=== PATIENT | female | born 1970 | race Caucasian/White ===

== ENCOUNTER 2025-02-05 08:27 | Emergency (ER) | payer SELFPAY ==
[2025-02-05] VITALS (19 sets, daily range): BP systolic 119–189; BP diastolic 67–112; PULSE 66–106; RESP 9–26; TEMP 36.8–36.9; O2SAT 94–100
--- NOTE | ~2025-02-05 | CT_ITS ---
EXAMINATION: CTA chest PE protocol DATE: 02/05/2025 10:27 INDICATION: Chest pain TECHNIQUE: Computed tomography (CT) pulmonary angiogram of the chest was performed with 100 mL Omnipa que-350 intravenous contrast. Additional 3D reconstructions utilizing coronal maximum intensity proje ction (MIP) were performed. Automated exposure control and iterative reconstruction technique were em ployed. The dose-length product was 398.25 mGy-cm. COMPARISON: None FINDINGS: No pulmonary embolism. Multiple small calcified pleural, subpleural and intrafissural nodules in the posterior lateral left upper lobe along the major fissure consistent with sequela of old granulomatou s disease. Mild dependent atelectasis in bilateral lower lobes small lucent regions of air trapping c onsistent with small airway disease. No pneumonia, pulmonary edema or pleural effusion. Heart size is normal. Thoracic aorta is normal in caliber with no dissection. No pathologically enlarged thoracic lymphadenopathy. Small sliding-type hiatal hernia. Couple splenic calcification consistent with old g ranulomatous disease. Moderate lower cervical and mild upper thoracic spondylosis. IMPRESSION: 1. No pulmonary embolism or other acute cardiopulmonary disease. 2. Small sliding-type hiatal hernia. Reviewed, dictated and finalized at location A.
--- NOTE | ~2025-02-05 | XR_ITS ---
EXAMINATION: XR chest 2V DATE: 02/05/2025 09:16 INDICATION: Chest pain and shortness of breath TECHNIQUE: PA and lateral views of the chest were obtained. COMPARISON: None FINDINGS: Calcified nodule lateral left midlung zone along with calcified left hilar lymph nodes consistent wit h old granulomatous disease. No other airspace opacities, pulmonary edema, pleural effusion or pneumo thorax. Heart size is normal. Small hiatal hernia. Minimal anterior wedging of a midthoracic vertebra l body, likely T8. IMPRESSION: 1. No acute cardiopulmonary disease. 2. Small hiatal hernia. Reviewed, dictated and finalized at location A.
--- NOTE | 2025-02-05 08:29 | ECG_ITS ---
Test Date: 2025-02-05 08:35:47 Measurements Intervals [place] Rate: 84 P: 26 CA: 149 QRS: -14 QRSD: 88 T: -2 QT: 361 QTc: 429 Interpretive Statements SINUS RHYTHM POSSIBLE LEFT ATRIAL ENLARGEMENT POSSIBLE RIGHT VENTRICULAR CONDUCTION DELAY BORDERLINE ST-T WAVE ABNORMALITY- INFERIOR LEADS BASELINE WANDER- I, II, III, AVL, V5 BORDERLINE ECG No previous ECG available for comparison Electronically Signed On 02-05-2025 12:40:32 CDT by Sumanth Inman D.O.
--- OUTSIDE RECORDS SUMMARY | 2025-02-05 08:29 | XMS_ITS | Continuity of Care Document ---
Author Organization [facility] Address [address] [place] [address] Care Team Providers Care Assembly Operator Name Role Phone Matt Azul MD Unavailable Unavailabl e Procedures Procedure Date Cv Stress; Interpt & Reprt Onl 20 Cv Stress; Phys Supervs Only Echo W/rest & Stress-interp & 0 Cv Stress; Interpt & Reprt Onl 20 Cv Stress; Phys Supervs Only Advance Directives Directive Yes / No Effective Date File Name No Information Encounters Encounter Description Practice Location Reason(s) For Visit Diagnoses Date Provider Providers Copied on Encounter [facility], [address] [place] [address], [facility], [facility] No Information 0 Jorge Alberto Gutierrez . [address], [facility], . tel:[phone] Referring Provider: Matt Robles, [address] [facility] [address] [place] [address], [address]. tel:[phone] [facility], [address] [place] [address], [facility], [facility] No Information Feb-0 0 Althea Robles. [address] [facility], [address] [place] [address], [address], [place]. tel:[phone] Referring Provider: Travis Robles, [address] [facility] [address] [place] [address], [facility]. tel:[phone] Family History Family Member Type Diagnosis Age At Onset No Information Payers Payer name Insurance type Covered libertarian ID Authortriciaa tiiván(s) [facility] POS CI [id number] Social History Type Description Quantity Date Captured Comments Sex Female Smoking Status No Information Chief Complaint And Reason For Visit No Information Reason For Referral Reason For Referral No Information History Of Present Illness Encounter Date Complaint History Of Prese nt Illness No Information Functional Status Date Functional Assessmen t No Information Instructions Date Instruction Additional Infor mation No Information Assessments Type Assessment Date No Information Patient Care Teams Name Effective Dates (start - stop) Status Members No Information
--- OUTSIDE RECORDS SUMMARY | 2025-02-05 08:29 | XMS_ITS | Clinical Summary ---
Author Organization [facility] [address] [place] Address [address] [place] [address] Care Team Providers Care Nipple Maker Name Role Phone Liliana Larios NP Primary Care Provider [phone] Allergies No known active allergies Medications multivitamin with minerals tablet Take 1 tablet by mouth daily Active Lactobacillus acidophilus (PROBIOTIC ORAL) Take by mouth Active escitalopram (LEXAPRO) 10 mg tablet Take 0.5 tablets (5 mg total) by mouth daily for 7 days, THEN 1 tablet (10 mg total) daily. 34 tablet 1 04/26/20 24 Active temazepam (RESTORIL) 15 mg capsule TAKE 1 CAPSULE BY MOUTH NIGHTLY NEEDED FOR SLEEP. 90 capsule 1 01/10/20 25 Active amLODIPine (NORVASC) 5 mg tabletIndicatio ns:Hypertension , essential Take 1 tablet (5 mg total) by mouth daily 90 tablet 1 01/10/20 25 026 Active HYDROcodone-shawna taminophen ([place]) 5-325 mg per tablet Take 5-325 mg by mouth every 8 (eight) hours 025 Discontinued( erapy completed) temazepam (RESTORIL) 15 mg capsule TAKE 1 CAPSULE BY MOUTH NIGHTLY NEEDED FOR SLEEP. 30 capsule 1 11/11/19 25 025 Discontinued amLODIPine (NORVASC) 5 mg tabletIndicatio ns:Hypertension , essential TAKE 1 TABLET (5 MG TOTAL) BY MOUTH DAILY. 90 tablet 01/06/20 025 Discontinued(Re order) Active Problems Problem Noted Date Diagnosed Date Hypertension, essential 04/26/2024 Assessment & Plan (04/26/2024 1:34 PM CDT): Stable/ Improved. Blood pressure is adequately controlled on amlodipine . We will not make any medication changes today. Will have her follow-up in 6 months for continued monitoring and management Keloid of skin 04/26/2024 Assessment & Plan (04/26/2024 1:34 PM CDT): Referral to plastic surgery for evaluation. Insomnia due to other mental disorder 04/26/2024 Assessment & Plan (04/26/2024 1:44 PM CDT): Secondary to anxiety. Also in menopause which can contribute. Will start restoril 7.5mg at bedtime. Discussed dosage and may call if dosage is too high to too high, but we'll f/u in 4-6 weeks for recheck Generalized anxiety disorder 09/30/2016 Assessment & Plan (04/26/2024 1:35 PM CDT): Discussed starting a medication and pt is agreeable. Will start escitalopram . Discussed starting dose and titration to full dose, possible SE and time frame for expected results. Call if any suicidal thoughts or questions concerning SE. Do not abruptly stop medication without calling office. Follow up in 3-4 weeks for recheck and continuation of medications. Crohn's colitis 01/21/2016 Assessment & Plan (04/26/2024 1:34 PM CDT): History of. No current problems. I told her I want her to have a GI established in case she would have an exacerbation. Will place referral. GERD (gastroesophageal reflux disease) 6 IBS (irritable bowel syndrome) 01/21/2016 Encounters Date Type Department Care Team Description 01/19/2025 8:45 AM CDT Ancillary Procedure [facility] Imaging at [address] [address] Acute right ankle pain 01/19/2025 8:45 AM CDT Office Visit [facility]ient Care at [address] [address] Blossom Bhandari NP Acute right ankle pain (Primary Dx); Right ankle swelling 01/19/2025 Results Follow-Up [facility] Care at [address] [address] Tiny Lamb PA XR Ankle Right 3+ Vw from Last 3 Months Surgical History Surgery Date Site/Laterality Comments HYSTERECTOMY 06/29/2016 - 06/28/2017 Medical History Medical History Date Comments Hypertension Crohn disease (HCC) Family History Medical History Relation Name Comments Dementia Father Relation Name Status Comments Father Mother Alive Social History Tobacco Use Types Packs/Day Years Used Date Smoking Tobacco: Never Passive Smoke Exposure: Never Smokeless Tobacco: Never AUDIT-C Answer Date Recorded Q1: How often do you have a drink containing alcohol? Never 01/20/2023 Q2: How many drinks containi ng alcohol do you have on a typical day when you are drinking? Patient does not drink Q3: How often do you have si x or more drinks on one occasion? Never 01/20/2023 PHQ-2 Answer Date Recorded PHQ-2 Total Score (If total score is 3 or more points, staff should administer the PHQ-9) 0 04/26/2024 Personal Safety Answer Date Recorded Have you ever been in or are you currently in a harmful physical or emotional relationship or is someone making you feel afraid or unsafe? Denies 01/12/2023 Comments No Sex and Gender Information Value Date Recorded Sex Assigned at Not on file Legal Sex Female 7:30 AM X RAY PHYSICIAN Gender Identity Not on file Sexual Orientation Not on file Obstetrics History Last Filed Vital Signs Vital Sign Reading Time Taken Comments Blood Pressure 131/88 01/19/2025 8:31 AM CDT Pulse 80 01/19/2025 8:31 AM CDT Temperature 37 C (98.6 F) 01/19/2025 8:31 AM CDT Respiratory Rate 20 01/19/2025 8:31 AM CDT Oxygen Saturation 99% 01/19/2025 8:31 AM CDT Inhaled Oxygen Concentration - - Weight 85.2 kg (187 lb 12.8 oz) 01/19/2025 8:31 AM CDT Height 172.7 cm (5' 8) 01/19/2025 8:31 AM CDT Body Mass Index 28.55 01/19/2025 8:31 AM CDT Plan of Treatment Health Maintenance Due Date Last Done Comments Breast Cancer Screening-Mammogram 1971 Colon Cancer Screening-Colonoscopy 1971 Hepatitis C Screening 1971 DTaP/Tdap/Td Vaccine (1 - Tdap) 1982 Hepatitis B Screening 1989 Regular Well Visit/Exam 18-64 1989 Zoster Vaccine (1 of 2) 2021 Covid-19 Vaccine (3 - 2023-2 5 season) 2024 10/13/2020, 09/15/2020 Influenza Vaccine (#1) 2025 Depression Screening 04/26/2025 04/26/2024 Pneumococcal vaccine <65 Aged Out No longer eligible based on patient's age to complete this topic Procedures Procedure Name Priority Date/Time Associated Diagnosis Comments XR ANKLE RIGHT 3 OR MORE VIEWS Schedule DEON, Read DEON (Appt Today, Awaiting Results) 01/19/2025 8:57 AM CDT Acute right ankle pain from Last 3 Months Results * XR Ankle Right 3+ Vw (01/19/2025 8:57 AM CDT) Anatomical Region Laterality Modality Lower Extremities, Ankle Right Digital Radiography 01/19/2025 11:4 4 AM CDT Narrative 01/19/2025 11:46 AM CDT EXAM DESCRIPTION: XR ANKLE RIGHT 3 OR MORE VIEWS REASON FOR STUDY: pain Pt complains of lateral ankle pain after falling this morning. Swelling noted. No prior fx or surgery TECHNIQUE: There are 3 radiographic view(s) of the right ankle . COMPARISON: Older exam 12/09/2008. FINDINGS: Normal mineralization. No acute fracture or dislocation. Talar dome is smooth. Ankle mortise is intact. Moderate plantar calcaneal spur. Heterotopic ossification distal Achilles. There is soft tissue swelling about the lateral malleolus. IMPRESSION: Soft tissue swelling about the lateral malleolus with no underlying fracture. THIS IS AN ELECTRONICALLY VERIFIED FINAL REPORT 01/19/2025 11:46 AM - Electronically signed by Manohar SALINAS T: Report ID: [id number] Reading Location: [id number] Procedure Note Manohar Car MD - 01/19/2025 EXAM DESCRIPTION: XR ANKLE RIGHT 3 OR MORE VIEWS REASON FOR STUDY: pain Pt complains of lateral ankle pain after falling this morning. Swellingnoted. No prior fx or surgery TECHNIQUE: There are 3 radiographic view(s) of the right ankle . COMPARISON: Older exam 12/09/2008. FINDINGS: Normal mineralization. No acute fracture or dislocation. Talar dome is smooth. Ankle mortise is intact. Moderate plantar calcanealspur. Heterotopic ossification distal Achilles. There is soft tissue swellingabout the lateral malleolus. IMPRESSION: Soft tissue swelling about the lateral malleolus with no underlying fracture. THIS IS AN ELECTRONICALLY VERIFIED FINAL REPORT 01/19/2025 11:46 AM - Electronically signed by Manohar SALINAS T: Report ID: [id number] Reading Location: [id number] Blossom Bhandari NP IMG XR PROCEDURES Final Result from Last 3 Months Insurance ON LICENSE OF [facility] Care Teams Nipple Maker Relationship Specialty Start Date End Date Liliana Larios NP [address] [facility] [address] [place] [address] PCP - General Family Medicine 04/26/24
--- OUTSIDE RECORDS SUMMARY | 2025-02-05 08:29 | XMS_ITS | Encounter Summary ---
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
--- OUTSIDE RECORDS SUMMARY | 2025-02-05 08:29 | XMS_ITS | Clinical Summary ---
Author Organization [facility] Address [facility] [place] [address] Care Team Providers Care Electronic Technician Name Role Phone None, Provider MD Primary Care Provider Unavaila ble Allergies No known active allergies Medications ondansetron 4 MG disintegrating tablet Take 1 tablet (4 mg total) by mouth every 8 (eight) hours as needed for Nausea. 20 tablet 8 Active Family History Medical History Relation Comments Hypertension Father Cancer Maternal Grandmother Relation Status Comments Father Maternal Grandmother Social History Tobacco Use Types Packs/Day Years Used Date Smoking Tobacco: Some Days Smokeless Tobacco: Never Alcohol Use Standard Drinks/Week Comments Yes 4 (1 standard drink = 0.6 oz pur e alcohol) Comments No Sex and Gender Information Value Date Recorded Sex Assigned at Not on file Legal Sex Female 6:34 PM CDT Gender Identity Not on file Sexual Orientation Not on file Last Filed Vital Signs Vital Sign Reading Time Taken Comments Blood Pressure 135/87 04/30/2021 12:00 AM CDT Pulse 71 04/30/2021 12:00 AM CDT Temperature 36.3 C (97.4 F) 04/29/2021 8:22 PM CDT Respiratory Rate 16 04/30/2021 12:00 AM CDT Oxygen Saturation 97% 04/30/2021 12:00 AM CDT Inhaled Oxygen Concentration - - Weight 68 kg (150 lb) 04/29/2021 8:22 PM CDT Height 172.7 cm (5' 8) 04/29/2021 8:22 PM CDT Body Mass Index 22.81 04/29/2021 8:22 PM CDT Plan of Treatment Health Maintenance Due Date Last Done Comments Colorectal Cancer Screening Colonoscopy (10 Years) 1971 Annual Physical 1974 Hepatitis C 1989 DTaP, Tdap and Td Vaccines ( 1 - Tdap) 1990 Hepatitis B Vaccines (1 of 3 - 19+ 3-dose series) 1990 Pneumococcal Vaccine: 50+ Ye ars (1 of 2 - PCV) 1990 Mammogram Screening 2011 Zoster Vaccines (1 of 2) 2021 COVID-19 Vaccine (1 - 2023-2 5 season) 2024 Meningococcal B Vaccine Aged Out No l onger eligible based on patient's age to complete this topic Meningococcal Vaccine Aged Out No rupa gricelda eligible based on patient's age to complete this topic RSV Immunizations Under 20 Months Aged Out No longer eligible based on patient's age to complete this topic Insurance MEDICAID MEDICAID Care Teams Electronic Technician Relationship Specialty Start Date End Date None, Provider, PCP - General 04/29/21
[2025-02-05 08:44] LABS: Hematocrit 41.8 % (37.0-47.0); Hemoglobin 14.3 g/dL (12.0-15.0); Immature Granulocyte Percent A 0.4 % (0-0.5); Lymphocytes Absolute Auto 2.43 K/mm3 (0.9-3.2); Mean Corpuscular HGB Conc 34.2 g/dl (32-36); Mean Corpuscular Hemoglobin 29.0 pg (26-34); Mean Corpuscular Volume 84.8 fl (80-100); Nucleated Red Blood Cells Absolute Auto 0.000 K/mm3 (0.0-0.012); Nucleated Red Blood Cells Perc 0.0 % (0.0-0.2); Platelet Count Result 415 k/mm3 (150-375); Red Blood Count 4.93 M/mm3 (4.2-5.4); White Blood Count 8.4 K/mm3 (4.5-10.0)
[2025-02-05] MEDS: ASPIRIN 81 MG CHEWABLE TABLET 324 MG PO (08:46)
[2025-02-05 08:55] LABS: Alanine Aminotransferase 27 U/L (6-35); Albumin Level 4.6 g/dL (3.5-5.1); Alkaline Phosphatase 103 U/L (38-126); Anion Gap 10 mmol/L (4-12); Aspartate Amino Transferase 33 U/L (14-36); Bilirubin,Total 0.5 mg/dL (0.2-1.3); Blood Urea Nitrogen 12 mg/dL (7-17); Calcium 9.8 mg/dL (8.4-10.2); Carbon Dioxide 25 mmol/L (22-30); Chloride 104 mmol/L (98-107); Estimated CRCL calculation 92 ml/min; Estimated Glomerular Filt Rate > 60; Glucose 103 mg/dL (65-110); Lipase 47 U/L (23-300); Potassium 4.2 mmol/L (3.4-5.0); Sodium 139 mmol/L (137-145); Total Protein 8.0 g/dL (6.3-8.2)
[2025-02-05] MEDS: KETOROLAC 30 MG/ML VIAL (*BKC) IV PUSH (08:59)
[2025-02-05 09:04] LABS: INR 1.0; Prothrombin Time 13.1 Seconds (11.1-14.7)
--- NOTE | 2025-02-05 09:04 | PC.NURSE ---
Dr. Courtney clarified okay to give Toradol with prior Aspirin administration. Pt resting in bed at this time. Lights turned down for comfort.
[2025-02-05 09:05] LABS: Partial Thromboplastin Time 34.3 Seconds (22.3-36.8)
[2025-02-05 09:07] LABS: Troponin I < 0.012 ng/mL (0.000-0.034)
--- NOTE | 2025-02-05 09:14 | ED_ITS ---
HPI - General Adult General Chief complaint: Chest Pain Stated complaint: CP Time Seen by Provider: 02/05/25 08:34 History of Present Illness HPI narrative: Patient is a 54-year-old female who presents ER with chest pain. Right-sided. Woke this morning was having discomfort there. Took Tylenol and ibuprofen without improvement. Pain is worse with deep breath and also lifting her arm above her shoulder. It is also very tender to direct palpation. Denies any trauma. No fevers or chills or sweats. No productive cough. No leg swelling. Related Data Allergies Allergy/AdvReac Type Severity Reaction Status Date / Time No Known Allergies Allergy Verified 02/05/25 08:48 Review of Systems 2 Review of Systems: All systems reviewed & are unremarkable except as noted in HPI and below Constitutional: Constitutional: Reports no additional constitutional complaints Cardiovascular: Cardiovascular: Reports no additional cardiovascular complaints Respiratory: Respiratory: Reports no additional respiratory complaints Gastrointestinal: Gastrointestinal: Reports no additional gastrointestinal complaints Musculoskeletal: Musculoskeletal: Reports no additional musculoskeletal complaints [facility] Past Medical History Medical History (Updated 02/05/25 @ 12:12 by Garfield Carvajal MD) Crohn disease Surgical History Surgical History (Updated 05/20/19 @ 17:14 by Tina Trejo PA-C) Hx of appendectomy H/O: hysterectomy Social History Social History (Updated 05/20/19 @ 17:14 by Tina Trejo PA-C) Smoking status: Never smoker Exam 2 Narrative: GENERAL: Well-appearing, well-nourished, and in no acute distress. HEAD: Normocephalic, atraumatic. ENT: Mucous membranes moist. CHEST: Clear to auscultation. No respiratory distress. Tender palpation with light palpation right anterior chest wall superior to the breast. No bruising abrasion. HEART: Regular rate and rhythm. Normal peripheral pulses. ABDOMEN: Soft, nontender, nondistended. EXTREMITIES: Pain with abduction beyond 90? in the right upper extremity. Normal internal-external rotation the right upper extremity. Normal lower extremities and left upper extremity. SKIN: Warm, dry, no rash. NEURO: Alert and oriented x3. PSYCH: Normal mood and affect. Course Course Emergency Course: Labs unremarkable. Toradol morphine for pain. CTA without PE/pneumonia. Appropriate for discharge home with scheduled anti-inflammatories muscle relaxers. Vital Signs Vital signs: Vital Signs Pulse Rate 106 H 02/05/25 08:33 Respiratory Rate 18 02/05/25 08:33 Blood Pressure 185/112 H 02/05/25 08:33 Pulse Oximetry 99 02/05/25 08:33 Temperature 98.4 F 02/05/25 10:46 Pulse Rate 72 02/05/25 11:53 Respiratory Rate 12 02/05/25 11:53 Blood Pressure 146/90 H 02/05/25 09:55 Pulse Oximetry 97 02/05/25 11:53 Oxygen Delivery Room Air 02/05/25 08:41 Medical Decision Making Vital Signs Vital Signs: Vital Signs Pulse Rate 106 H 02/05/25 08:33 Respiratory Rate 18 02/05/25 08:33 Blood Pressure 185/112 H 02/05/25 08:33 Pulse Oximetry 99 02/05/25 08:33 Temperature 98.4 F 02/05/25 10:46 Pulse Rate 72 02/05/25 11:53 Respiratory Rate 12 02/05/25 11:53 Blood Pressure 146/90 H 02/05/25 09:55 Pulse Oximetry 97 02/05/25 11:53 Oxygen Delivery Room Air 02/05/25 08:41 Lab Data 02/05/25 08:39 02/05/25 08:39 Labs: Lab Results 02/05/25 02/05/25 Range/Units 08:39 11:37 WBC 8.4 (4.5-10.0) K/mm3 RBC 4.93 (4.2-5.4) M/mm3 Hgb 14.3 (12.0-15.0) g/dL Hct 41.8 (37.0-47.0) % MCV 84.8 (80-100) fl MCH 29.0 (26-34) pg MCHC 34.2 (32-36) g/dl RDW 12.4 (11.5-14.5) % Plt Count 415 H (150-375) k/mm3 MPV 9.4 (7.4-10.4) fl Immature Gran % (Auto) 0.4 (0-0.5) % Neut % (Auto) 58.4 (45.5-73.1) % Lymph % (Auto) 29.1 (18.3-44.2) % [place] % (Auto) 7.7 (2.6-8.5) % Eos % (Auto) 3.1 (0-4.4) % Baso % (Auto) 1.3 H (0.2-1.2) % Lymph # (Auto) 2.43 (0.9-3.2) K/mm3 [place] # (Auto) 0.6 (0.1-0.6) K/mm3 Eos # (Auto) 0.3 (0-0.3) K/mm3 Baso # (Auto) 0.1 (0.0-0.1) K/mm3 Abs Immat Gran (auto) 0.03 (0.00-0.031) K/mm3 Absolute Neuts (auto) 4.9 (1.3-6.7) K/mm3 Absolute Nucleated RBC 0.000 (0.0-0.012) K/mm3 Nucleated RBC % 0.0 (0.0-0.2) % PT 13.1 (11.1-14.7) Seconds INR 1.0 APTT 34.3 (22.3-36.8) Seconds Sodium 139 (137-145) mmol/L Potassium 4.2 (3.4-5.0) mmol/L Chloride 104 (98-107) mmol/L Carbon Dioxide 25 (22-30) mmol/L Anion Gap 10 (4-12) mmol/L BUN 12 (7-17) mg/dL Creatinine 0.69 L (0.7-1.0) mg/dL Estim Creat Clear Calc 92 ml/min Estimated GFR > 60 (59 - ) Glucose 103 (65-110) mg/dL Calcium 9.8 (8.4-10.2) mg/dL Total Bilirubin 0.5 (0.2-1.3) mg/dL AST 33 (14-36) U/L ALT 27 (6-35) U/L Alkaline Phosphatase 103 (38-126) U/L Troponin I < 0.012 < 0.012 (0.000-0.034) ng/mL Total Protein 8.0 (6.3-8.2) g/dL Albumin 4.6 (3.5-5.1) g/dL Lipase 47 (23-300) U/L Imaging Data Radiologist's impression: ITS Impressions Chest X-Ray 02/05/25 09:31 IMPRESSION: 1. No acute cardiopulmonary disease. 2. Small hiatal hernia. Chest CTA 02/05/25 10:41 IMPRESSION: 1. No pulmonary embolism or other acute cardiopulmonary disease. 2. Small sliding-type hiatal hernia. ECG Data EKG #1: ECG completion date: 02/05/25 ECG completion time: 08:35 EKG Interpretation: normal rate (84), sinus rhythm, no ectopy, no ST changes, normal QRS and normal QT Discharge Plan Discharge Clinical Impression: Chest wall pain Patient Disposition: Home Condition: Stable Instructions: Chest Wall Pain (ED) Additional Instructions: Please return to the emergency department if you develop severe and persistent chest pain, difficulty breathing, dizziness, leg swelling or if you are coughing up blood as these can be signs of a medical emergency. Please call your doctor for a follow up appointment to determine the need for further testing. Patient Language: Austrian Prescriptions: New cyclobenzaprine 10 mg tablet 10 mg PO TID PRN (Reason: muscle spasm) Qty: 20 0RF naproxen 375 mg tablet 375 mg PO BID Qty: 14 0RF No Action diazepam [Valium] 5 mg tablet 5 mg PO TID PRN (Reason: muscle spasm) Qty: 10 0RF Follow-up/Referrals: Ric,KARRI ArugetaP [Primary Care Provider] - 1 Week Quality HEART score for chest pain patients History: slightly suspicious ECG: normal Age: < or = to 45 years Risk factors: 1 or 2 risk factors Troponin: < or = to 1x normal limit Heart score: 1
--- OUTSIDE RECORDS SUMMARY | 2025-02-05 09:31 | XMS_ITS | Clinical Summary ---
Author Organization [facility] Address [facility] [place] [address] Care Team Providers Care Clay Artisan Name Role Phone None, Provider MD Primary [...] this topic Insurance MEDICAID MEDICAID Care Teams Clay Artisan Relationship Specialty Start Date End Date None, Provider, PCP - General 04/29/21
--- OUTSIDE RECORDS SUMMARY | 2025-02-05 09:31 | XMS_ITS | Clinical Summary ---
Author Organization [facility] [address] [place] Address [address] [place] [address] Care Team Providers Care Technician Terminal And Repeater Name Role Phone Liliana Larios NP Primary Care Provider [phone] Allergies No known active allergies Medications multivitamin [...] 1 01/10/20 25 026 Active HYDROcodone-shawna taminophen ([place]) 5-325 mg per tablet Take 5-325 mg [...] Description 01/19/2025 8:45 AM CDT Ancillary Procedure [facility] Imaging at [address] [address] Acute right ankle pain 01/19/2025 8:45 AM CDT Office Visit [facility] Convenient Care at [address] [address] Blossom Bhandari NP Acute right ankle pain (Primary Dx); Right ankle swelling 01/19/2025 Results Follow-Up [facility] Convenient Care at [address] [address] Tiny Lamb PA XR Ankle [...] on file 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
--- OUTSIDE RECORDS SUMMARY | 2025-02-05 09:31 | XMS_ITS | Encounter Summary ---
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
--- OUTSIDE RECORDS SUMMARY | 2025-02-05 09:31 | XMS_ITS | Continuity of Care Document ---
Author Organization [facility] Address [address] [place] [address] Care Team Providers Care Corporate Health Consultant Name Role Phone Matt Azul MD Unavailable [...] Providers Copied on Encounter [facility], [address] [place] [address], [facility], [facility] No Information 0 Jorge Alberto Gutierrez . [address], [facility], . tel:[phone] Referring Provider: Matt Robles, [address] [facility] [address] [place] [address], [address]. tel:[phone] [facility], [address] [place] [address], [facility], [facility] No Information Feb-0 0 Althea Robles. [address] [facility], [address] [place] [address], [address], [place]. tel:[phone] Referring Provider: Travis Robles, [address] [facility] [address] [place] [address], [facility]. tel:[phone] Family History Family Member Type Diagnosis Age At Onset No Information Payers Payer name Insurance type Covered libertarian ID Authortriciaa tiiván(s) [facility] POS CI [id number] Social History Type Description Quantity Date Captured [...]
[2025-02-05] MEDS: MORPHINE SULFATE (*CRX) 4 MG/ML INJ IV PUSH (10:07)
--- NOTE | 2025-02-05 11:09 | ECG_ITS ---
Test Date: 2025-02-05 11:29:26 Measurements Intervals [place] Rate: 68 P: 29 IA: 154 QRS: -1 QRSD: 90 T: -1 QT: 401 QTc: 428 Interpretive Statements SINUS RHYTHM POSSIBLE LEFT ATRIAL ENLARGEMENT INCOMPLETE RIGHT BUNDLE BRANCH BLOCK LOW QRS VOLTAGE IN PRECORDIAL LEADS BORDERLINE ST-T WAVE ABNORMALITY- INFERIOR LEADS BASELINE WANDER- I, II, AVR, AVL, AVF BORDERLINE ECG Compared to ECG 02/05/2025 08:35:47 NO SIGNIFICANT CHANGE Electronically Signed On 02-05-2025 12:32:14 CDT by Sumanth Inman D.O.
[2025-02-05 12:05] LABS: Troponin I < 0.012 ng/mL (0.000-0.034)
== END 2025-02-05 12:33 | disposition home or self-care (01) ==
PROVIDERS: Internal Medicine Pulmonary Disease; Emergency Provider Emergency Medicine; PCP Nurse Practitioner Family
DX: R07.89 Other chest pain (principal); K50.90 Crohn's disease, unspecified, without complications; Z90.710 Acquired absence of both cervix and uterus; K44.9 Diaphragmatic hernia without obstruction or gangrene
CPT/HCPCS: 36415; 71046; 71275; 80053; 83690; 84484; 85025; 85610; 85730; 93005; 96374; 96375; 99284; A9270; J1885; J2270; Q9967